=== PATIENT | female | born 1975 | race Caucasian/White ===

== ENCOUNTER 2016-11-13 20:22 | Emergency (ER) | payer OTHER ==
[~2016-11-13] VITALS: Ht 152.4 cm; Wt 74.5 kg
[~2016-11-13 20:22] MED LIST: CYCL-319 PO; FERR27TA PO; HYDR-3498 PO; IBUP-1542 PO; PREN1TAB49 PO
[2016-11-13 20:28] VITALS: Ht 152.4 cm; Wt 74.5 kg
[2016-11-13 21:42] LABS: URINE BLOOD (Dip) POC Trace-lysed (NEGATIVE)
[2016-11-13] MEDS ORDERED: LIDOCAINE/MYLANTA 40 ML BTL PO STA (21:45)
[2016-11-13] MEDS ORDERED: FAMOTIDINE 20 MG TAB PO STA (21:45)
[2016-11-13] MEDS ORDERED: BELLADONNA/PHENOBARBITAL TAB PO STA (21:45)
[2016-11-13] MEDS ORDERED: MAG355OR14 PO (21:50)
[2016-11-13] MEDS ORDERED: FAMO40TA52 PO (21:50)
[2016-11-13] MEDS ORDERED: OMEP40CA6 PO (21:50)
[2016-11-13] MEDS ORDERED: OXYCODONE/ACETAMINOPHEN (5/325) TAB PO ONE (22:00)
[2016-11-13] MEDS ORDERED: PANTOPRAZOLE (EC) 40 MG TAB PO ONE (22:00)
[2016-11-13 22:12] VITALS: BP 110/73; PULSE 87; RESP 18
--- NOTE | 2016-11-14 06:13 | ERD ---
ER Documentation Chief Complaint Date/Time DATE: 11/14/16 TIME: 06:10 Chief Complaint epigastric pain x 2 weeks HPI 41-year-old woman complains of epigastric abdominal pain, burning in sensation, radiating upward to the throat. She denies fevers or chills, no dysuria, no chest pain or shortness of breath ROS All systems reviewed and are negative except as per history of present illness. Medications Home Meds Active Scripts Famotidine* (Famotidine*) 40 Mg Tablet, 40 MG PO HS, #30 TAB Prov:DEVON LAGUNAS MD 11/13/16 Mag Hydrox/Al Hydrox/Simeth (Maalox Advanced Suspension) 355 Ml Oral.susp, 2 TSP PO TID for PAIN, #24 OZ Prov:DEVON LAGUNAS MD 11/13/16 Omeprazole* (Omeprazole*) 40 Mg Capsule.dr, 40 MG PO DAILY, #30 CAP Prov:DEVON LAGUNAS MD 11/13/16 Cyclobenzaprine Hcl* (Cyclobenzaprine Hcl*) 10 Mg Tablet, 10 MG PO TID, #15 TAB Prov:FIONA KISER NP 01/27/16 Ibuprofen* (Motrin*) 600 Mg Tab, 600 MG PO Q6H Y for PAIN AND OR ELEVATED TEMP, #30 TAB Prov:FIONA KISER NP 01/27/16 Hydrocodone Bit-Acetaminophen* ([place]*) 5-325 Mg Tab, 1 TAB PO Q6 Y for PAIN, # 20 TAB Prov:FIONA KISER NP 01/27/16 Reported Medications Ferrous Sulfate (Iron) 1 Tab Tablet, 1 TAB PO DAILY 12/02/11 Vits W-Ca,Fe,Fa(<1MG) () 1 Tab Tablet, 1 TAB PO DAILY 12/02/11 Allergies Allergies: Coded Allergies: No Known Allergy (Unverified , 12/02/11) PMhx/Soc Gastritis Medical and Surgical Hx: pt denies Medical Hx History of Surgery: No Anesthesia Reaction: No Hx Neurological Disorder: No Hx Respiratory Disorders: No Hx Cardiac Disorders: No Hx Psychiatric Problems: No Hx Miscellaneous Medical Probl: No Hx Alcohol Use: No Hx Substance Use: No Hx Tobacco Use: No Smoking Status: Never smoker FmHx Family History: No diabetes Physical Exam Vitals Vital Signs Date Time Temp Pulse Resp B/P Pulse Ox O2 Delivery O2 Flow Rate FiO2 11/13/16 22:12 87 18 110/73 97 Room Air 11/13/16 20:28 98.3 88 20 105/61 98 Physical Exam GENERAL: Well-developed, well-nourished, well-hydrated, in no apparent distress , looks nontoxic in appearance HEENT: Moist mucous membranes, pink conjunctiva, no cervical spine tenderness or step-off deformities, no goiter, no jaundice or icterus, extraocular movements intact without pain. No submandibular induration, and no pharyngeal erythema NEURO: Alert and oriented 3, cranial nerves II through XII intact bilaterally, pupils equal round reactive to light, no focal deficits or facial asymmetry, sensation intact distally Strength 5/5 in upper and lower extremities bilaterally CARDIAC: Regular rate and rhythm, no murmurs rubs or gallops LUNGS: Clear bilaterally no wheezing crackles or stridor ABDOMEN: Soft nontender, no guarding, no rigidity, no rebound, no psoas sign no obturator sign. Normoactive bowel sounds SKIN: Warm and dry to touch, no abrasions, contusions, or hematomas, no lacerations, no ecchymosis, no target lesions, and without ulcers EXTREMITIES: No clubbing cyanosis or edema, calves are bilaterally symmetrical, no Homans sign, no popliteal cord sign. Distal pulses equal and bilateral PSYCH: Normal affect without agitation or irritability Results 24 hrs Laboratory Tests Test 11/13/16 21:40 Bedside Urine pH (LAB) 7.0 Bedside Urine Protein (LAB) Negative Bedside Urine Glucose (UA) Negative Bedside Urine Ketones (LAB) Negative Bedside Urine Blood Trace-lysed Bedside Urine Nitrite (LAB) Negative Bedside Urine Leukocyte Esterase (L Trace Current Medications Medications (Trade) Dose Ordered Sig/Juan Alberto Route PRN Reason Start Time Stop Time Status Last Admin Dose Admin Famotidine (Pepcid) 40 mg ONCE STAT PO 11/13/16 21:45 11/13/16 21:46 DC 11/13/16 22:06 Miscellaneous Medication (Gi Cocktail (2)) 40 ml ONCE STAT PO 11/13/16 21:45 11/13/16 21:46 DC 11/13/16 22:05 [place]/ Phenobarbital () 2 tab ONCE STAT PO 11/13/16 21:45 11/13/16 21:46 DC 11/13/16 22:06 Pantoprazole (Protonix Tab) 40 mg ONCE ONCE PO 11/13/16 22:00 11/13/16 22:01 DC 11/13/16 22:06 Oxycodone/ Acetaminophen (Percocet (5/ 325)) 1 tab ONCE ONCE PO 11/13/16 22:00 11/13/16 22:01 DC 11/13/16 22:06 Procedures/MDM test was negative and urine analysis was negative for infection. I administered a GI cocktail 50 cc p.o., Percocet 1 tablet p.o., Protonix 40 mg p.o., and famotidine 40 mg p.o. with good effect Differential diagnoses considered, included but not limited to acute coronary syndrome, pulmonary embolism, aortic dissection, abdominal aortic aneurysm, sepsis, stroke, meningitis, encephalitis, pneumonia, appendicitis, cholecystitis , bowel obstruction, pyelonephritis, nephrolithiasis, cystitis, as well as metabolic, hematologic, and electrolyte abnormalities. As well as abscess, cellulitis, fractures, and dislocations. Patient feels much better at this time, and vital signs are normal, symptoms have improved. I did give strict instructions to return to the ED if symptoms continue or worsen, patient will otherwise follow-up with primary care physician. Patient understood instructions and agreed to plan. Departure Diagnosis: Primary Impression: Gastritis Gastritis type: unspecified gastritis Chronicity: acute Gastritis bleeding : without bleeding Qualified Code: K29.00 - Acute gastritis without hemorrhage, unspecified gastritis type Condition: Good Patient Instructions: Gerd (Adult), Gastritis (Adult) Referrals: PROMISE BUSTILLOS DAVID MD Nov 14, 2016 06:13
== END 2016-11-13 22:13 | disposition home or self-care (01) ==
LOC: E/R 20:22
DX: K29.00 Acute gastritis without bleeding (principal)
CPT/HCPCS: 81003; Z7610; 99283

== ENCOUNTER 2017-02-18 18:46 | Emergency (ER) | payer OTHER ==
[~2017-02-18] VITALS: Ht 152.4 cm; Wt 74.0 kg
[~2017-02-18 18:46] MED LIST changes: +FAMO40TA52 PO; +MAG355OR14 PO; +OMEP40CA6 PO
[2017-02-18 18:50] VITALS: Ht 152.4 cm; Wt 74.0 kg
--- NOTE | 2017-02-18 20:10 | ERD ---
ER Documentation Chief Complaint Date/Time DATE: 02/18/17 TIME: 20:08 Chief Complaint right ankle pain x2 weeks denies fall/trauma. motrin ineffective HPI Patient is a 42-year-old female with no past medical history who presents to the ED with right ankle pain 2 weeks. She denies fall or trauma or injury. 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 She states the pain is located on the lateral side of her right ankle. Denies radiation of pain. States that she is able to ambulate but feels numbness and tingling on the bottom of her foot and lateral ankle. Denies calf pain. Denies chest pain or cough or shortness of breath. Denies fever or chills. She is taking ibuprofen for her symptoms which has minimally helped. No other complaints. ROS All systems reviewed and are negative except as per history of present illness. Medications Home Meds Active Scripts Diclofenac Sodium* (Voltaren* Gel) 1% -100 Gm Gel, 2 GM TOP QID, #1 TUB Prov:MARTINA SANCHEZ PA-C 02/18/17 Naproxen* (Naprosyn*) 500 Mg Tablet, 500 MG PO BID Y for PAIN AND/OR INFLAMMATION, #30 TAB Prov:MARTINA SANCHEZ PA-C 02/18/17 Famotidine* (Famotidine*) 40 Mg Tablet, 40 MG PO HS, #30 TAB Prov:DEVON LAGUNAS MD 11/13/16 Mag Hydrox/Al Hydrox/Simeth (Maalox Advanced Suspension) 355 Ml Oral.susp, 2 TSP PO TID for PAIN, #24 OZ Prov:DEVON LAGUNAS MD 11/13/16 Omeprazole* (Omeprazole*) 40 Mg Capsule.dr, 40 MG PO DAILY, #30 CAP Prov:DEVON LAGUNAS MD 11/13/16 Cyclobenzaprine Hcl* (Cyclobenzaprine Hcl*) 10 Mg Tablet, 10 MG PO TID, #15 TAB Prov:FIONA KISER NP 01/27/16 Ibuprofen* (Motrin*) 600 Mg Tab, 600 MG PO Q6H Y for PAIN AND OR ELEVATED TEMP, #30 TAB Prov:FIONA KISER NP 01/27/16 Hydrocodone Bit-Acetaminophen* ([place]*) 5-325 Mg Tab, 1 TAB PO Q6 Y for PAIN, # 20 TAB Prov:FIONA KISER VICKIE FrankNya KIM 01/27/16 Reported Medications Ferrous Sulfate (Iron) 1 Tab Tablet, 1 TAB PO DAILY 12/02/11 Vits W-Ca,Fe,Fa(<1MG) () 1 Tab Tablet, 1 TAB PO DAILY 12/02/11 Allergies Allergies: Coded Allergies: No Known Allergy (Unverified , 02/18/17) PMhx/Soc History of Surgery: Yes (hernia) Anesthesia Reaction: No Hx Neurological Disorder: No Hx Respiratory Disorders: No Hx Cardiac Disorders: No Hx Psychiatric Problems: No Hx Miscellaneous Medical Probl: No Hx Alcohol Use: No Hx Substance Use: No Hx Tobacco Use: No Smoking Status: Never smoker FmHx Family History: No coronary disease, No diabetes, No other Physical Exam Vitals Vital Signs Date Time Temp Pulse Resp B/P Pulse Ox O2 Delivery O2 Flow Rate FiO2 02/18/17 18:50 97.2 94 18 129/68 97 Physical Exam GENERAL: Well-developed, well-nourished female. Appears in no acute distress. HEAD: Normocephalic, atraumatic. NECK: Supple. No lymphadenopathy or thyromegaly. No meningismus. negative kernig. negative brudinski. LUNG: Clear to auscultation bilaterally. No rhonchi, wheezing, rales or coarse breath sounds. HEART: Regular rate and rhythm. No murmurs, rubs or gallops. Extremities: Equal pulses bilaterally. No peripheral clubbing, cyanosis or edema. No unilateral leg swelling. mild Tenderness to lateral right ankle. No open wounds, deformities or step offs. No laceration. No signs of infection. Pulses intact bilaterally. Non tender to proximal fibular. Sensation intact bilaterally. Negative Sherley sign. dorsiflexion, extension, inversion and eversion intact bilaterally. No warmth or erythema. NEUROLOGIC: Alert and oriented. Moving all four extremities. 5/5 strength in all extremities. Normal speech. Steady gait. SKIN: Normal color. Warm and dry. No rashes or lesions. Capillary refill < 2 seconds Procedures/MDM ER COURSE: I kept the patient and/or family informed of laboratory and diagnostic imaging results throughout the emergency room course. IMAGING STUDIES [place] [id number] Radiology Main Line: [phone] DIAGNOSTIC IMAGING REPORT Patient: GERARDO GILLESPIE : 1975 Age: 42 Sex: F MR #: [id number] DOS: 02/18/172005 Ordering MD: MARTINA SANCHEZ PA-C Location: [facility] Room/Bed: PROCEDURE: X-ray right ankle CLINICAL INDICATION: Ankle pain. TECHNIQUE: 3 views right ankle COMPARISON: None FINDINGS: No acute fracture or dislocation. Soft tissues unremarkable. IMPRESSION: No acute fracture. RPTAT: [facility] Physician [place] Date Time Electronically viewed and signed by Physician [place] on 02/18/2017 21:34 RS/ CC: MARTINA SANCHEZ PA-C MEDICAL DECISION MAKING: This is a 42-year-old female who presents with right ankle pain 2 weeks. Vital signs were reviewed. Patient is afebrile. Patient is not hypoxic. Patient is not toxic or ill-appearing. Patient likely has muscle strain versus sprain versus plantar fasciitis. X-rays per radiologist unremarkable for fracture dislocation. Low suspicion for dislocation, fracture, septic joint, compartment syndrome, osteomyelitis, cellulitis, avascular necrosis, neurological injury, vascular injury, tendon laceration. Patient was given an Tanvir wrap. Neurovascularly intact post placement DISCHARGE: At this time, patient is stable for discharge and outpatient management with no new complaints during the ER course. Patient was sent home with Naprosyn, Voltaren gel and to follow-up with primary care provider. Patient will be discharged home with instructions to recheck for new or worsening symptoms such as fever, nausea, weakness, LOC and to follow up with primary care in the next 1 -2 days. Patient was advised to return to the ER for any new or worsening symptoms. Plan was discussed and patient and/or family understands and agrees. Home instructions were given. Departure Diagnosis: Primary Impression: Ankle pain Laterality: right Chronicity: acute Qualified Code: M25.571 - Acute right ankle pain Condition: Stable MARTINA SANCHEZ PA-C Feb 18, 2017 20:10
--- NOTE | 2017-02-18 21:34 | RADRPT ---
PROCEDURE: X-ray right ankle CLINICAL INDICATION: Ankle pain. TECHNIQUE: 3 views right ankle COMPARISON: None FINDINGS: No acute fracture or dislocation. Soft tissues unremarkable. IMPRESSION: No acute fracture. RPTAT: [facility] Physician [place] Date Time Electronically viewed and signed by Ana Laura Abdullahi Physician on 02/18/2017 21:34 RS/
[2017-02-18] MEDS ORDERED: NAPR-260 PO (21:43)
[2017-02-18] MEDS ORDERED: DICL100G37 TOP (21:44)
[2017-02-18 22:11] VITALS: BP 140/70; PULSE 77; RESP 17; TEMP 97
== END 2017-02-18 22:11 | disposition home or self-care (01) ==
LOC: FTE 18:46
DX: M25.571 Pain in right ankle and joints of right foot (principal)
CPT/HCPCS: 73610; Z7502

== ENCOUNTER 2017-03-26 00:32 | Emergency (ER) | payer OTHER ==
[~2017-03-26] VITALS: Ht 157.5 cm; Wt 73.5 kg
[~2017-03-26 00:32] MED LIST changes: +DICL100G37 TOP; +NAPR-260 PO
[2017-03-26 00:39] VITALS: Ht 157.5 cm; Wt 73.5 kg
[2017-03-26] MEDS ORDERED: HYDROCODONE/APAP (5/325) TAB PO ONE (02:00)
--- NOTE | 2017-03-26 02:22 | RADRPT ---
PROCEDURE: XR Elbow. CLINICAL INDICATION: Trauma TECHNIQUE: AP, lateral and oblique views of the left elbow were performed. COMPARISON: There are no similar studies submitted for comparison. FINDINGS: There is normal bone mineralization.There is no acute fracture or dislocation.No osseous lesion is i dentified. There is no joint effusion. IMPRESSION: No acute fracture or dislocation. RPTAT: HIKT .Arthur Leon MD, MD Date Time Electronically viewed and signed by .Arthur Leon MD, MD on 03/26/2017 02:22 .T/
--- NOTE | 2017-03-26 02:39 | RADRPT ---
PROCEDURE: US DVT LEFT UPPER EXTREMITY CLINICAL INDICATION: Left upper extremity pain and swelling. TECHNIQUE: Ultrasound examination of left upper extremity deep venous system was performed.. Ther e is no were obtained with zarate scale and color Doppler imaging. 2D grayscale measurements with com pression, color Doppler flow, and augmentation was performed. COMPARISON: No prior studies are available for comparison. FINDINGS: There is normal venous flow within the left internal jugular, subclavian, cephalic, axillary, brachi al, basilar, radial and ulnar veins. No filling defects are identified. IMPRESSION: 1. No evidence of a deep vein thrombosis involving the left upper extremity. RPTAT: HMVK .Homar Couch MD, MD Date Time Electronically viewed and signed by .Homar Couch MD, on 03/26/2017 02:38 .K/
[2017-03-26] MEDS ORDERED: NAPR-688 PO (02:46)
--- NOTE | 2017-03-26 02:51 | ERD ---
ER Documentation Chief Complaint Date/Time DATE: 03/26/17 TIME: 02:48 Chief Complaint Left arm pain and bruising,denies trauma HPI This 42-year-old female presents with left proximal forearm pain with some feeling of swelling and tenderness in her left anterior lateral forearm muscles. It is not affected by arm movements very much but does hurt somewhat more when she flexes and extends her arm. She has no specific elbow pain. She has had no fever or chills. Denies any known trauma. ROS All systems reviewed and are negative except as per history of present illness. Medications Home Meds Active Scripts Naproxen* (Naproxen*) 500 Mg Tablet, 500 MG PO BID Y for PAIN, #20 TAB Prov:JARETT HENRY DO 03/26/17 Diclofenac Sodium* (Voltaren* Gel) 1% -100 Gm Gel, 2 GM TOP QID, #1 TUB Prov:MARTINA SANCHEZ PA-C 02/18/17 Naproxen* (Naprosyn*) 500 Mg Tablet, 500 MG PO BID Y for PAIN AND/OR INFLAMMATION, #30 TAB Prov:MARTINA SANCHEZ PA-C 02/18/17 Famotidine* (Famotidine*) 40 Mg Tablet, 40 MG PO HS, #30 TAB Prov:DEVON LAGUNAS MD 11/13/16 Mag Hydrox/Al Hydrox/Simeth (Maalox Advanced Suspension) 355 Ml Oral.susp, 2 TSP PO TID for PAIN, #24 OZ Prov:DEVON LAGUNAS MD 11/13/16 Omeprazole* (Omeprazole*) 40 Mg Capsule.dr, 40 MG PO DAILY, #30 CAP Prov:DEVON LAGUNAS MD 11/13/16 Cyclobenzaprine Hcl* (Cyclobenzaprine Hcl*) 10 Mg Tablet, 10 MG PO TID, #15 TAB Prov:FIONA KISER NP 01/27/16 Ibuprofen* (Motrin*) 600 Mg Tab, 600 MG PO Q6H Y for PAIN AND OR ELEVATED TEMP, #30 TAB Prov:FIONA KISER NP 01/27/16 Hydrocodone Bit-Acetaminophen* ([place]*) 5-325 Mg Tab, 1 TAB PO Q6 Y for PAIN, # 20 TAB Prov:FIONA KISER NP 01/27/16 Reported Medications Ferrous Sulfate (Iron) 1 Tab Tablet, 1 TAB PO DAILY 12/02/11 Vits W-Ca,Fe,Fa(<1MG) () 1 Tab Tablet, 1 TAB PO DAILY 12/02/11 Allergies Allergies: Coded Allergies: No Known Allergy (Unverified , 02/18/17) PMhx/Soc History of Surgery: Yes (inguinal hernia repair) Anesthesia Reaction: No Hx Neurological Disorder: No Hx Respiratory Disorders: No Hx Cardiac Disorders: Yes (high cholesterol) Hx Psychiatric Problems: No Hx Miscellaneous Medical Probl: No Hx Alcohol Use: No Hx Substance Use: No Hx Tobacco Use: No Smoking Status: Never smoker Physical Exam Vitals Vital Signs Date Time Temp Pulse Resp B/P Pulse Ox O2 Delivery O2 Flow Rate FiO2 03/26/17 00:39 98.8 76 18 144/79 99 Physical Exam Const: [] No distress Head: Atraumatic Skin: No petechiae or rashes Ext: No cyanosis, or edema. There is some tissue texture change of the left anterior lateral forearm adjacent to the elbow with a feeling of mild induration and somewhat a sensation of palpating sand underneath the skin somewhat. This does not cause any significant tenderness and she has full range of motion of the elbow. Distal pulses intact with good capillary refill. Neur: Awake and alert Psych: Normal Mood and Affect Results 24 hrs Current Medications Medications (Trade) Dose Ordered Sig/Juan Alberto Route PRN Reason Start Time Stop Time Status Last Admin Dose Admin Acetaminophen/ Hydrocodone Bitart ([place] (5/325)) 1 tab ONCE ONCE PO 03/26/17 02:00 03/26/17 02:01 DC 03/26/17 01:43 Procedures/MDM Possible muscle strain near left anterior cubital fossa. No sign of DVT or calcification or bony abnormality. No soft tissue changes on x-ray. Patient was given [place] which did reduce her pain. We will discharge her with naproxen and instruction to follow-up with a primary care doctor. Departure Diagnosis: Primary Impression: Pain in anterior left upper extremity Condition: Stable Patient Instructions: Muscle Strain, Extremity Additional Instructions: Llame al doctor MAANA y pelon ludy PREMA PARA DENTRO DE 2-3 FANG.Dgale a la secretaria que nosotros le instruimos hacer esta prema.Avise o llame si poe condicin se empeora antes de la prema. Regresa aqui si peor o no mejor. JARETT HENRY DO Mar 26, 2017 02:51
[2017-03-26 03:06] VITALS: BP 115/66; PULSE 74; RESP 18; TEMP 98.8
== END 2017-03-26 03:10 | disposition home or self-care (01) ==
LOC: E/R 00:32
DX: M79.602 Pain in left arm (principal)
CPT/HCPCS: 73080; 93971; Z7610

== ENCOUNTER 2017-12-26 20:03 | Emergency (ER) | END 2017-12-26 20:45 | disposition home or self-care (01) ==

== ENCOUNTER 2018-06-02 21:48 | Emergency (ER) | END 2018-06-03 00:15 | disposition home or self-care (01) ==